=== PATIENT | female | born 1990 | race African-American/Black ===

== ENCOUNTER 2021-06-02 15:23 | Emergency (ER) | payer BC, SELFPAY | END 2021-06-02 15:43 | disposition home or self-care (01) | LOC: BURERS 15:23 | DX: J30.9 Allergic rhinitis, unspecified (principal); F17.210 Nicotine dependence, cigarettes, uncomplicated | CPT/HCPCS: 99283 ==

== ENCOUNTER 2024-05-17 15:05 | Emergency (ER) | payer SELFPAY | END 2024-05-17 15:42 | disposition home or self-care (01) | LOC: BURERS 15:05 | DX: M54.50 Low back pain, unspecified (principal); F17.290 Nicotine dependence, other tobacco product, uncomplicated; X50.0XXA Overexertion from strenuous movement or load, initial encounter; Y99.0 Civilian activity done for income or pay | CPT/HCPCS: 99283 ==

== ENCOUNTER 2025-01-17 09:24 | Emergency (ER) | payer MEDICAID, SELFPAY ==
[2025-01-17] MEDS ORDERED: Morphine 10 MG/ML VIAL ONE (09:42)
[2025-01-17] MEDS ORDERED: Ondansetron PF 4 MG/2 ML Vial ONE (09:43)
== END 2025-01-17 10:03 | disposition home or self-care (01) ==
LOC: BURERS 09:24
DX: O20.0 Threatened abortion (principal); Z3A.01 Less than 8 weeks gestation of pregnancy; Z87.891 Personal history of nicotine dependence
CPT/HCPCS: 96372; 99283; J2270; J2405

== ENCOUNTER 2025-06-04 01:12 | Emergency (ER) | payer OTHER ==
[2025-06-04 02:01] LABS: #Basophils 0.1 thou/uL (0.0-0.2); #Eosinophils 0.2 thou/uL (0.0-0.7); #Lymphocytes 1.5 thou/uL (1.20-3.40); #Monocytes 0.5 thou/uL (0.11-0.59); #Neutrophils 3.7 thou/uL (1.40-6.50); %Basophils 2.4 % (0.0-1.0); %Eosinophils 3.9 % (0.0-10.0); %Lymphocytes 25.1 % (21.0-51.0); %Monocytes 7.4 % (0.0-10.0); %Neutrophils 61.2 % (42.0-75.0); Hematocrit 30.5 % (36.0-47.0); Hemoglobin 8.7 g/dL (12.0-16.0); Mean Corpuscular Hemoglobin 16.4 pg (27.0-31.0); Mean Corpuscular Volume 57.4 fl (78.0-98.0); Platelet Count 530 10x3/uL (130-400); Red Blood Cell (RBC) Count 5.31 mill/uL (4.20-5.40); White Blood Cell (WBC) Count 6.1 10x3/uL (4.8-10.8)
[2025-06-04 02:08] LABS: BHCG - Serum POSITIVE (NEGATIVE); Pregs Control Background? CLEAR/WHITE (CLR/WHITE); Pregs Control Bar Appear? YES (CONTROL BAR)
[2025-06-04 02:21] LABS: ALT (SGPT) 23 U/L (Less than 34); AST (SGOT) 33 U/L (11-34); Albumin 4.2 g/dL (3.1-4.5); Alkaline Phosphatase 42 U/L (40-110); Anion Gap 16 mmol/L (10-20); BUN (Urea Nitrogen) 14 mg/dL (7.0-18.7); Bilirubin, Total 0.7 mg/dL (0.3-1.2); Calc. Creatinine Clearance 0 mL/min (70-130); Calcium 9.3 mg/dL (7.8-10.44); Carbon Dioxide 22 mmol/L (22-29); Chloride 107 mmol/L (98-107); Globulin 3.5 g/dL (2.4-3.5); Glucose 106 mg/dL (70-105); Potassium 4.2 mmol/L (3.5-5.1); Sodium 141 mmol/L (136-145)
[2025-06-04 02:23] LABS: MDiff Complete? YES; Microcytosis MARKED = >30 cells (100X) (0-5/hpf); Platelet Adequacy Comment Appears Increased
== END 2025-06-04 04:12 | disposition short-term general hospital (02) ==
LOC: BURERS 01:12
DX: O03.9 Complete or unspecified spontaneous abortion without complication (principal); O99.011 Anemia complicating pregnancy, first trimester; D62 Acute posthemorrhagic anemia; Z3A.10 10 weeks gestation of pregnancy; Z87.891 Personal history of nicotine dependence
CPT/HCPCS: 36415; 80053; 84702; 84703; 85025; 86900; 86901; 99284

== ENCOUNTER 2025-07-02 07:57 | Emergency (ER) | payer OTHER ==
[2025-07-02] MEDS ORDERED: Lidocaine Viscous Sol 2% 15 ml UD Cup ONE (08:32)
[2025-07-02] MEDS ORDERED: Mag-Al Plus 1200/1200/120 MG (30 mL) UDCUP ONE (08:32)
[2025-07-02] MEDS ORDERED: Famotidine 20 MG TAB ONE (08:32)
== END 2025-07-02 08:38 | disposition home or self-care (01) ==
LOC: BURERS 07:57
DX: K29.70 Gastritis, unspecified, without bleeding (principal); Z87.891 Personal history of nicotine dependence
CPT/HCPCS: 99283